=== PATIENT | female | born 1975 | race Caucasian/White ===

== ENCOUNTER 2020-04-16 07:56 | Outpatient (CLI) | payer OTHER, SELFPAY ==
--- NOTE | 2020-04-16 | USCV_ITS ---
Nanette Gibson Age: 44 Gender: F : 1975 Exam Date: 04/16/2020 08:30 Ordering Phys: Alanis Kilpatrick Technologist: Yady Faith [place]am Location[place] [facility] [place] Indication: chest pain, sob, numbness BP: / HR: 67 Rhythm: Sinus Technical Quality: Adequate MEASUREMENTS (Male / Female) Normal Values 2D ECHO LV Diastolic Diameter PLAX 3.3 cm 4.2 - 5.9 / 3.9 - 5.3 cm LV Systolic Diameter PLAX 1.7 cm IVS Diastolic Thickness 0.8 cm 0.6 - 1.0 / 0.6 - 0.9 cm IVS Systolic Thickness 1.5 cm LVPW Diastolic Thickness 0.9 cm 0.6 - 1.0 / 0.6 - 0.9 cm LVPW Systolic Thickness 1.4 cm LVOT Diameter 2.0 cm LV Ejection Fraction 2D Teich 80.2 % LV Ejection Fraction MOD 2C 56.3 % LV Ejection Fraction 2C AL 57.0 % LA Diameter 3.0 cm LA Width 2.6 cm LA Height 4.4 cm RA Width 2.8 cm RA Height 4.0 cm M-MODE LV Diastolic Diameter MM 3.2 cm 4.2 - 5.9 / 3.9 - 5.3 cm LV Systolic Diameter MM 1.9 cm LV Ejection Fraction MM Teich 72.1 % IVS Diastolic Thickness MM 0.7 cm 0.6 - 1.0 / 0.6 - 0.9 cm IVS Systolic Thickness MM 0.7 cm LVPW Diastolic Thickness MM 0.9 cm 0.6 - 1.0 / 0.6 - 0.9 cm LVPW Systolic Thickness MM 1.4 cm Aortic Annulus Diameter 2.5 cm LA Ao Ratio MM 1.2 MV E Point Septal Separation 0.7 cm DOPPLER AV Peak Velocity 110.0 cm/s LVOT Peak Velocity 91.0 cm/s AV Area Cont Eq vti 2.7 cm squared AV Area Cont Eq pk 2.7 cm squared MV Peak Velocity 98.0 cm/s MV Area PHT 4.6 cm squared Mitral E to A Ratio 1.2 MV E' Velocity 17.0 cm/s Mitral E to MV E' Ratio 6.8 Mitral E to LV E' Lateral Ratio 5.4 Mitral E to LV E' Septal Ratio 9.2 TR Peak Velocity 163.0 cm/s TR Peak Gradient 10.7 mmHg Right Atrial Pressure 3.0 mmHg Pulmonary Artery Systolic Pressu 13.6 mmHg PV Peak Velocity 103.0 cm/s RV Acceleration Time 0.1 s FINDINGS Left Ventricle Normal left ventricular size, systolic function and wall thickness, with no regional wall motion abnormalities. Left ventricular ejection fraction is estimated at 72 %. Normal diastolic function. Right Ventricle Normal right ventricular size and systolic function, RVSP 13.6 mmHg. Right Atrium Normal right atrial size. Right atrial pressure estimated at 3 mmHg. Left Atrium Normal left atrial size. Mitral Valve Structurally normal mitral valve. No mitral valve stenosis. Trace mitral valve regurgitation. Aortic Valve Structurally normal trileaflet aortic valve. No aortic valve stenosis. No aortic valve regurgitation. Tricuspid Valve Structurally normal tricuspid valve. Trace tricuspid valve regurgitation. Pulmonic Valve Structurally normal pulmonic valve. No pulmonary valve stenosis. Trace pulmonary valve regurgitation. Pericardium No pericardial effusion. Aorta Normal size aortic root and proximal ascending aorta. CONCLUSIONS 1. Normal left ventricular size, systolic function and wall thickness, with no regional wall motion abnormalities. Left ventricular ejection fraction is estimated at 72 %. Normal diastolic function. 2. Normal right ventricular size and systolic function, RVSP 13.6 mmHg. 3. No significant valvular abnormality. 4. No prior similar studies to compare. Anisha Miguel MD (Electronically Signed) Final Date: 17 Apr 2020 11:54 S
== END 2020-04-16 07:57 | disposition home or self-care (01) ==
PROVIDERS: PCP Nurse Practitioner Family; Visit Provider Nurse Practitioner Family
DX: R07.9 Chest pain, unspecified (principal); R06.02 Shortness of breath; R20.0 Anesthesia of skin
CPT/HCPCS: 93306

== ENCOUNTER 2020-04-16 09:05 | Outpatient (CLI) | payer OTHER, SELFPAY ==
--- NOTE | 2020-04-16 09:47 | ECG_ITS ---
NAME OF STUDY: EXERCISE SESTAMIBI STRESS TEST INDICATION: Chest Pain EXERCISE DATA: The patient was exercised by Maldonado protocol. Baseline heart rate was 62 beats per minute. Baseline blood pressure was 100/68 millimeters of mercury. Target heart rate was 177 beats per minute. Maximum heart rate achieved was 156, which was 88 % of the target heart rate. Maximum blood pressure was 157/72 millimeters of mercury. Total exercise time was 7 minutes 1 second. Maximum METs achieved was 8.8, maximum VO2 was 30.8. The reason for ending the test was maximum effort achieved. The patient complained of shortness of breath during the stress test, which then resolved at the end of the test. ELECTROCARDIOGRAM: BASELINE: Sinus rhythm, normal axis, no significant ST-T changes at the baseline noted. EXERCISE: At the peak exercise level, no significant ST-T changes suggestive of ischemia noted. RECOVERY: During the recovery period, heart rate dropped appropriately. No significant ST-T changes in the recovery suggestive of ischemia noted. CONCLUSION: 1. Exercise capacity fair. 2. Heart rate response was appropriate. 3. Blood pressure response was appropriate. 4. Symptoms not suggestive of ischemia. 5. Electrocardiogram portion of the stress test was not suggestive of ischemia. 6. Nuclear scan will be documented separately. Electronically Signed On 04-17-2020 19:10:33 CDT by Anshu Lundy M.D. [email or web address]
--- NOTE | 2020-04-16 09:47 | NMCV_ITS ---
NM karina perf SPECT r/s* [id number] Nanette Gibson Age: 44 Gender: F : 1975 Exam Date: 04/16/2020 10:08 Ordering Phys: Alanis Kilpatrick Technologist: OTILIA Interiano Exam Location: [facility] Indications: CHEST PAIN STRESS TEST Please see separate stress test report in [facility] for full findings IMAGE PROTOCOL Rest/Stress 1 Exercise Day Radiopharmaceutical Dose (mCi) Administration Site Administered by Rest: Tc-99m 10.7 IV OTILIA Delong Sestamibi Stress:Tc-99m 32.5 IV OTILIA Delong Sestamibi Rest: 16-Apr-2020 60 Discovery 630 Stress: 16-Apr-2020 15 Discovery 630 Radiopharmaceutical was injected at 85 % maximum heart rate. Images obtained in supine and prone position. SPECT RESULTS Technical Quality: Excellent Raw Data Analysis: Breast attenuation Image Corrections: No attenuation or motion correction applied Summed Stress Score: 0 Summed Rest Score: 2 Summed Difference Score: 0 PERFUSION FINDINGS SPECT images demonstrate homogeneous tracer distribution throughout the myocardium. FUNCTIONAL RESULTS (calculated via Gated SPECT) Stress Image LV EF (%): 80 Stress EDV (mL):61 TID: 1.13 Stress ESV (mL):12 Rest Image LV EF (%): 80 FUNCTIONAL FINDINGS: There is normal left ventricular systolic function. IMPRESSIONS Myocardial perfusion imaging is normal and low probability for obstructive coronary disease. TID ratio is elevated which could be secondary left- ventricular hypertrophy/subendocardial ischemia in the absence of other parameters. EKG segment will be documented separately. Anshu Lundy MD (Electronically Signed) Final Date: 16 Apr 2020 17:48 S
[2020-04-16 09:51] VITALS: BMI 30.9
[2020-04-16 10:58] VITALS: BP 142/83; PULSE 90
== END 2020-04-16 09:06 | disposition home or self-care (01) ==
LOC: RAD 09:06
PROVIDERS: PCP Nurse Practitioner Family; Visit Provider Nurse Practitioner Family
DX: R07.9 Chest pain, unspecified (principal); R06.02 Shortness of breath
CPT/HCPCS: 78452; 93017; A9500

== ENCOUNTER 2020-06-01 15:05 | Outpatient (CLI) | payer OTHER, SELFPAY ==
--- NOTE | 2020-06-01 15:10 | USCV_ITS ---
Nanette Gibson Age: 44 Gender: F : 1975 Exam Date: 06/01/2020 15:56 Ordering Phys: Jos Barahona MD Technologist: [place] [facility] [place] Indication: LEG EDEMA PROCEDURES: Venous duplex imaging was performed in bilateral lower extremities. The following venous structures were evaluated: common femoral vein, profunda vein, proximal portion of the greater saphenous vein, superficial femoral vein, and the popliteal vein. In addition, the posterior tibial and peroneal trunk were evaluated. Serial compression, augmentation maneuvers, and spectral Doppler flow evaluation were performed. FINDINGS: Normal 2-D Doppler and augmentation and compressibility throughout the lower extremity venous structures. Additional imaging through the proximal calf veins also reveals no thrombus. Limited evaluation of the greater saphenous vein is patent with no thrombus.. CONCLUSIONS No evidence of right lower extremity DVT. No evidence of left lower extremity DVT. George Milligan MD (Electronically Signed) Final Date: 03 June 2020 10:47 S
== END 2020-06-01 15:06 | disposition home or self-care (01) ==
LOC: RAD 15:06
PROVIDERS: PCP Nurse Practitioner Family; Visit Provider Family Medicine
DX: R60.0 Localized edema (principal)
CPT/HCPCS: 93970

== ENCOUNTER 2020-06-03 15:04 | Outpatient (CLI) | payer OTHER, SELFPAY ==
--- NOTE | 2020-06-03 15:10 | USCV_ITS ---
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 Dr Jerardo Tay MD [facility] (Electronically Signed) Final Date: 04 June 2020 19:17 S
== END 2020-06-03 15:05 | disposition home or self-care (01) ==
PROVIDERS: PCP Nurse Practitioner Family; Visit Provider Family Medicine
DX: R60.0 Localized edema (principal)
CPT/HCPCS: 93923

== ENCOUNTER 2020-11-05 12:38 | Outpatient (CLI) | payer OTHER, SELFPAY ==
--- NOTE | 2020-11-05 12:46 | XR_ITS ---
WS: [id number] Cervical spine, 3 views, 11/05/2020 Clinical Data: BACK PAIN, NECK PAIN Comparison: None. Findings: No compression fractures are seen. There is disc space narrowing at C5-C6. There is anterio r and posterior osteoarthritic spurring at C4-C5 and C5-C6. There is no prevertebral soft tissue swel ling. The odontoid is unremarkable. The soft tissues of the neck and the lung apices are normal. Ther e is an unfused portion of the C7 spinous process which may be a result of old trauma or congenital a bnormality. XR/XR cervical spine 3V* [id number] Impression: 1. Degenerative change of the vertebral bodies C4-C6. 2. Disc space narrowing at C4-C5 and C5-C6.
--- NOTE | 2020-11-05 12:46 | XR_ITS ---
WS: [id number] Thoracic spine, 3 views, 11/05/2020 Clinical Data: BACK PAIN, NECK PAIN Comparison: None. Findings: No compression fractures are seen. The disc heights are normal. Mild osteoarthritic spurring is seen at the mid thoracic vertebral bodies. The paravertebral regions are normal. 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
== END 2020-11-05 12:39 | disposition home or self-care (01) ==
LOC: RADWPI 12:40
PROVIDERS: PCP Nurse Practitioner Family; Visit Provider Nurse Practitioner Family
DX: M47.814 Spondylosis without myelopathy or radiculopathy, thoracic region; M54.2 Cervicalgia
CPT/HCPCS: 72040; 72072

== ENCOUNTER 2022-12-12 14:51 | Outpatient (CLI) | payer OTHER, SELFPAY ==
--- NOTE | 2022-12-12 15:06 | MM_ITS ---
WS: [id number] VIEWS: MLO and CC views both breasts. 3D digital tomosynthesis is also included in this exam. Breast implant displacement MLO and CC views also included in the series. No priors. Findings: A 9.6 x 6 mm ovoid nodule seen in the posterior depth of the medial left breast on the cc view only. No architectural distortion or suspicious calcification. Regional ultrasound of the left breast would be indicated for further workup. The breasts are heterogeneously dense and nodular in appearance. In tact bilateral breast implants noted. MM/[place] [id number] Impression: BI-RADS: 0-Incomplete: Need additional imaging evaluation FOLLOW-UP: See Report This mammogram was also analyzed by the Computer Aided Detection System R2 Imag e Handstitching Machine Collar Feller.
== END 2022-12-12 14:52 | disposition home or self-care (01) ==
LOC: RAD 14:51
PROVIDERS: PCP Clinical Nurse Specialist Adult Health; Visit Provider Clinical Nurse Specialist Adult Health
DX: Z12.31 Encounter for screening mammogram for malignant neoplasm of breast (principal)
CPT/HCPCS: 77063; 77067

== ENCOUNTER 2023-01-06 14:58 | Outpatient (CLI) | payer OTHER, SELFPAY ==
--- NOTE | 2023-01-06 15:15 | US_ITS ---
WS: [id number] Left breast ultrasound, 01/06/2023 Clinical Data: abnormal mammogram Comparison: Mammogram, 12/12/2022 Findings: In the medial aspect of the left breast at the 10:00 position there was a well bordered lymph node me asuring 0.27 x 0.92 x 0.95 cm. No spiculated masses or cysts were seen. US/US breast LT limited* [id number] Impression: 1. Left breast lymph node noted at the 10:00 position in the medial aspect the left breast corresponding to the density noted on the mammogram. 2. Recommend return to annual screening mammograms. BIRADS: 2-Benign FOLLOW UP: 1 Year Follow-up
== END 2023-01-06 14:59 | disposition home or self-care (01) ==
LOC: RAD 14:58
PROVIDERS: PCP Clinical Nurse Specialist Adult Health; Visit Provider Clinical Nurse Specialist Adult Health
DX: R92.8 Other abnormal and inconclusive findings on diagnostic imaging of breast (principal)
CPT/HCPCS: 76642

== ENCOUNTER 2023-04-30 11:19 | Inpatient (IN) | payer OTHER, SELFPAY ==
[2023-04-30] VITALS (17 sets, daily range): BP systolic 95–138; BP diastolic 61–92; PULSE 55–79; RESP 16–18; TEMP 36.3–36.7; O2SAT 94–100; BMI 30.9
[2023-04-30 11:54] LABS: Basophils % 0.5 %; Eosinophils # 0.1 10^3/uL (0.0-0.8); Eosinophils % 1.7 %; Hematocrit 44.5 % (37.0-47.0); Hemoglobin 14.9 g/dL (11.5-15.3); Lymphocytes # 1.7 10^3/uL (0.8-4.8); Lymphocytes % 28.1 %; Mean Corpuscular HGB Conc 33.5 g/dL (30.0-36.0); Mean Corpuscular Hemoglobin 31.4 pg (28.0-34.0); Mean Corpuscular Volume 93.7 fl (81-99); Mean Platelet Volume 9.1 fL (7.4-10.4); Monocytes # 0.4 10^3/uL (0.2-0.9); Monocytes % 6.3 %; Neutrophils # 3.79 10^3/uL (1.8-7.7); Neutrophils % 63.1 %; Nucleated Red Blood Cells % 0 %; Platelet Count 214 10^3/cmm (130-400); Red Blood Count 4.75 10^6/uL (4.1-5.3); Red Cell Distribution Width 11.9 % (12.1-15.1)
--- NOTE | 2023-04-30 11:54 | USR_ITS ---
PROCEDURE INFORMATION: Exam: US Abdomen, Limited; Right Upper Quadrant Exam date and time: 04/30/2023 12:14 PM Age: 47 years old Clinical indication: Abdominal pain; Acute; Additional info: Ruq pain, n/v, R/O gb TECHNIQUE: Imaging protocol: Real time ultrasound of the abdomen with image documentation. Limited exam focused on the right upper quadrant. COMPARISON: No relevant prior studies available. FINDINGS: Liver: Unremarkable. Gallbladder: Cholelithiasis and mild gallbladder wall thickening. No pericholecystic fluid. Biliary ducts: Common bile duct dilatation to approximately 8 mm. No stones. Pancreas: Unremarkable as visualized. Right kidney: No mass. No definite stones. No hydronephrosis. US/US abdomen limited [id number] IMPRESSION: 1. Cholelithiasis and mild gallbladder wall thickening. Acute cholecystitis cannot be excluded. If clinically indicated, HIDA scan would provide a more sensitive evaluation for acute gallbladder pathology. 2. Common bile duct dilatation to approximately 8 mm. Correlate with LFTs and, if clinically indicated, ERCP or MRCP.
[2023-04-30] MEDS: ondansetron 2 mg/ML SDV 2 mL 4 MG IVP (12:03)
[2023-04-30] MEDS: ketorolac 30 mg/mL INJ IVP ×2 (12:03→18:49)
--- NOTE | 2023-04-30 12:09 | ED_ITS ---
HPI - Abdominal Pain General: Chief Complaint: Abdominal Pain Stated Complaint: stomach and back pain Time Seen by Provider: 04/30/23 11:26 History of Present Illness: Patient presents to the ER with epigastric right upper pain that radiates to her back. Patient has had this pain off and on for quite some time. Patient has seen her PCP and has a right upper quadrant ultrasound scheduled until 620. Patient thinks it is her gallbladder. Patient denies any other symptoms at this time. Patient denies any history of hepatitis, long-term or and/or chronic alcohol use and/or Tylenol use. MD elicited complaint: abdominal pain Pertinent past history: none Pain Consistency: intermittent Location: Epigastric and RUQ Severity: moderate Quality: cramping and aching Radiation: back Migration to: no migration Exacerbating factors: nothing Relieving factors: nothing Associated Symptoms: Reports no associated symptoms Review of Systems General: Reports: 10 or more systems reviewed and unremarkable except in HPI and below PFSH ED PFSH: Medical History Anxiety Carpal tunnel syndrome of right wrist Morbid obesity Tobacco dependence Surgical History Hx of breast implants, bilateral Hx of hysterectomy Family History Other CAD (coronary artery disease) Cancer Social History Smoking and tobacco status: current every day smoker cigarettes Packs smoked per day: 1 Years cigarettes smoked: 30 Alcohol intake: current Alcohol intake frequency: few times a month Substance/Drug Use: former Lives independently: Yes Household members: spouse Marital status: Physical Exam Const: COMMON NORMALS: no acute distress, average body habitus, patient oriented x3, no limitations, healthy appearing, alert and well nourished HENMT: COMMON NORMALS: normocephalic, atraumatic, hearing grossly normal bilaterally, external ears normal, Normal external nose present and moist oral mucous membranes HEAD & SCALP: normocephalic and atraumatic NOSE: Normal external nose present EXTERNAL EAR: Yes external ears normal Neck/C-Spine: COMMON NORMALS: full ROM, no lymphadenopathy, supple, no meningeal signs, no JVD and Thyroid normal THYROID: Thyroid normal Chest: COMMONS NORMALS: normal inspection of the chest and normal palpation of entire chest wall Resp: COMMON NORMALS: normal respiratory effort, No retractions, No use of accessory muscles and clear to auscultation bilaterally AUSCULTATION: clear to auscultation bilaterally Cardio: COMMON NORMALS: no JVD, regular rate, regular rhythm, S1 normal heart sound present, S2 normal heart sound present, No gallops present (Cardio), No clicks present (Cardio), No murmurs present (Cardio) and No rub (Cardio) RATE: regular rate RHYTHM: regular rhythm HEART SOUNDS: S1 normal heart s ound present and S2 normal heart sound present GI: COMMON NORMALS: Normal to inspection, nondistended, normoactive bowel sounds present, Soft to palpation, No hepatosplenomegaly present and no masses PALPATION: Yes Soft to palpation, Yes Tenderness to palpation present (GI) (Epigastric and right upper quadrant) and Yes No hepatosplenomegaly present : COMMON NORMALS: Yes no CVA tenderness BLADDER/KIDNEY EXAM: Yes no CVA tenderness Back/Pelvis: COMMON NORMALS: no CVA tenderness Neuro: COMMON NORMALS: patient oriented x3 SENSORIUM/ORIENTATION: Yes alert MENINGEAL SIGNS: Yes no meningeal signs Course Vital Signs: Vital signs: Vital Signs Temperature 97.4 F L 04/30/23 20:43 Pulse Rate 55 L 04/30/23 20:43 Respiratory Rate 16 04/30/23 21:02 Blood Pressure 125/80 04/30/23 20:43 Pulse Oximetry 96 04/30/23 20:43 Oxygen Delivery Me thod Room Air 04/30/23 20:07 MDM - Abdominal Pain Medical Decision Making Talk with Dr. Joaquin will get MRCP, reviewed the MRCP with Dr. Joaquin he said more likely not gallbladder but can admit to the hospitalist for further work-up and he will consult from a surgical standpoint. Talk with Dr. Contreras he said these numbers are really high especially since the patient does not drink, use Tylenol or has ever had hepatitis. He recommends that we transfer the patient out for further work-up and treatment at a place at least has a adaptive physical education specialist and he recommended [facility]. We will get further testing here and once we get it back we will call [facility] for possible consultation and transfer. Called [facility] transfer line talk to with the hospice volunteer coordinator and GI doctor Dr. COLE who did agree to accept the patient in transfer however they have no beds at this moment and he said it may be several days for they have beds. He said he would just follow serial enzymes and if they worsen he she may need a liver biopsy or they may get better and resolve on her own. Talk with Dr. David again who agreed to take the patient in this hospital while waiting transfer. Patient will be admitted to [facility]. Differential Diagnosis Likely abdominal pain; Unlikely acute appendicitis, calculus of kidney, constipation, diverticulitis, endometriosis, gastroenteritis, pancreatitis or small bowel obstruction Medical Records I reviewed the patient's medical records. Lab Data I reviewed the patient's lab results. 04/30/23 11:34 04/30/23 11:34 Labs/Radiology: Radiology Impressions Abdomen Ultrasound 04/30/23 11:54 IMPRESSION: 1. Cholelithiasis and mild gallbladder wall thickening. Acute cholecystitis cannot be excluded. If clinically indicated, HIDA scan would provide a more sensitive evaluation for acute gallbladder pathology. 2. Common bile duct dilatation to approximately 8 mm. Correlate with LFTs and, if clinically indicated, ERCP or MRCP. Cholangiopancreatography MRI 04/30/23 13:18 IMPRESSION: Cholelithiasis. No common bile duct dilation/choledocholithiasis. Laboratory Results WBC 6.0 10^3/uL (4.0-10.0) 04/30/23 11:34 RBC 4.75 10^6/uL (4.1-5.3) 04/30/23 11:34 Hgb 14.9 g/dL (11.5-15.3) 04/30/23 11:34 Hct 44.5 % (37.0-47.0) 04/30/23 11:34 MCV 93.7 fl (81-99) 04/30/23 11:34 MCH 31.4 pg (28.0-34.0) 04/30/23 11:34 MCHC 33.5 g/dL (30.0-36.0) 04/30/23 11:34 RDW 11.9 % (12.1-15.1) L 04/30/23 11:34 Plt Count 214 10^3/cmm (130-400) 04/30/23 11:34 MPV 9.1 fL (7.4-10.4) 04/30/23 11:34 Neut % (Auto) 63.1 % 04/30/23 11:34 Lymph % (Auto) 28.1 % 04/30/23 11:34 [place] % (Auto) 6.3 % 04/30/23 11:34 Eos % (Auto) 1.7 % 04/30/23 11:34 Baso % (Auto) 0.5 % 04/30/23 11:34 Neut # (Auto) 3.79 10^3/uL (1.8-7.7) 04/30/23 11:34 Lymph # (Auto) 1.7 10^3/uL (0.8-4.8) 04/30/23 11:34 [place] # (Auto) 0.4 10^3/uL (0.2-0.9) 04/30/23 11:34 Eos # (Auto) 0.1 10^3/uL (0.0-0.8) 04/30/23 11:34 Baso # (Auto) 0.0 10^3/uL (0.0-0.1) 04/30/23 11:34 Nucleated RBC % (auto) 0 % 04/30/23 11:34 Nucleated RBCs # 0.0 /100WBC 04/30/23 11:34 PT 13.00 SECONDS (12.1-14.9) 04/30/23 11:34 INR 0.96 (0.8-1.2) 04/30/23 11:34 Sodium 139 mmol/L (136-145) 04/30/23 11:34 Potassium 4.3 mmol/L (3.5-5.1) 04/30/23 11:34 Chloride 105 mmol/L (98-107) 04/30/23 11:34 Carbon Dioxide 26 mmol/L (22-29) 04/30/23 11:34 Anion Gap 12.3 (5-19) 04/30/23 11:34 BUN 11 mg/dL (6-20) 04/30/23 11:34 Creatinine 0.7 mg/dL (0.5-0.9) 04/30/23 11:34 GFR Calculation 90.1 mL/min (90-130) 04/30/23 11:34 Glucose 93 mg/dL (65-115) 04/30/23 11:34 Calculated Osmolality 287 mOsm/kg (285-295) 04/30/23 11:34 Calcium 9.2 mg/dL (8.5-10.5) 04/30/23 11:34 Total Bilirubin 1.0 mg/dL (0.15-1.2) 04/30/23 11:34 GGT 450 U/L (5-36) H 04/30/23 16:22 AST 1131 U/L (0-32) H 04/30/23 11:34 ALT 944 U/L (0-33) H 04/30/23 11:34 Alkaline Phosphatase 205 U/L (35-105) H 04/30/23 11:34 Ammonia 17 umol/L (11-51) 04/30/23 16:22 Total Protein 7.3 g/dL (6.6-8.7) 04/30/23 11:34 Albumin 4.5 g/dL (3.5-5.2) 04/30/23 11:34 Globulin 2.8 g/dL (1.3-4.6) 04/30/23 11:34 Lipase 69 U/L (13-60) H 04/30/23 11:34 Urine Color Dark yellow (Yellow) 04/30/23 16:14 Urine Appearance Clear (CLEAR) 04/30/23 16:14 Urine pH 8 (5-7) H 04/30/23 16:14 Ur Specific [place] 1.015 (1.005-1.030) 04/30/23 16:14 Urine Protein Neg (Negative) 04/30/23 16:14 Urine Glucose (UA) Norm (Normal) 04/30/23 16:14 Urine Ketones Negative (Negative) 04/30/23 16:14 Urine Blood Neg (Negative) 04/30/23 16:14 Urine Nitrate Negative (Negative) 04/30/23 16:14 Urine Bilirubin Neg (Negative) 04/30/23 16:14 Urine Urobilinogen 4 mg/dL (Negative) H 04/30/23 16:14 Ur Leukocyte Esterase Negative (Negative) 04/30/23 16:14 Salicylates < 0.3 mg/dL (3-10) L 04/30/23 16:22 Urine Opiates Screen Negative ng/mL (Negative) 04/30/23 16:14 Acetaminophen < 5.0 ug/mL (10-30) L 04/30/23 16:22 Ur Barbiturates Screen Negative ng/mL (Negative) 04/30/23 16:14 Ur Phencyclidine Scrn Negative ng/mL (Negative) 04/30/23 16:14 Ur Amphetamines Screen Negative ng/mL (Negative) 04/30/23 16:14 U Benzodiazepines Scrn Negative ng/mL (Negative) 04/30/23 16:14 Urine Cocaine Screen Negative ng/mL (Negative) 04/30/23 16:14 U Marijuana (THC) Screen Negative ng/mL (Negative) 04/30/23 16:14 Ethyl Alcohol < 10 mg/dL (0-10) 04/30/23 16:22 Hepatitis A IgM Ab Non-reactive (Nonreactive) 04/30/23 11:34 Hep Bs Antigen Non-reactive (Nonreactive) 04/30/23 11:34 Hep Bs Antibody < 3.5 (11.5-1000) L 04/30/23 11:34 Hep B Core Total Ab Non-reactive (Nonreactive) 04/30/23 11:34 Hepatitis C Antibody Non-reactive (Nonreactive) 04/30/23 11:34 Discharge Plan Discharge Patient Disposition: Admitted As Inpatient Admit Provider: Brendan David Clinical Impression: Right upper quadrant pain, Elevated liver enzymes Condition: Stable 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
[2023-04-30 12:12] LABS: Albumin Level 4.5 g/dL (3.5-5.2); Alkaline Phosphatase 205 U/L (35-105); Anion Gap 12.3 (5-19); Blood Urea Nitrogen 11 mg/dL (6-20); Calcium 9.2 mg/dL (8.5-10.5); Carbon Dioxide 26 mmol/L (22-29); Chloride 105 mmol/L (98-107); Creatinine Clr Calc Pharmacy 103.8047; Globulin 2.8 g/dL (1.3-4.6); Glomerular Filtration Rate 90.1 mL/min (90-130); Glucose 93 mg/dL (65-115); Lipase 69 U/L (13-60); Osmolality Calculated 287 mOsm/kg (285-295); Potassium 4.3 mmol/L (3.5-5.1); Sodium 139 mmol/L (136-145); Total Protein 7.3 g/dL (6.6-8.7)
[2023-04-30 12:24] LABS: Alanine Aminotransferase 944 U/L (0-33)
[2023-04-30 12:26] LABS: Aspartate Amino Transferase 1131 U/L (0-32)
--- NOTE | 2023-04-30 13:18 | MRR_ITS ---
PROCEDURE INFORMATION: Exam: MR Abdomen Without Contrast Exam date and time: 04/30/2023 2:23 PM Age: 47 years old Clinical indication: Other: Gb pain off and on x 1 month; Abdominal pain; Tenderness; Upper; Additional info: Abnormal gb US, dilated cbd, elevated lfts TECHNIQUE: Imaging protocol: Magnetic resonance imaging of the abdomen without contrast. COMPARISON: US abdomen limited [id number] 04/30/2023 12:14 PM FINDINGS: Liver: No mass. Gallbladder and bile ducts: Cholelithiasis. There is a 1.7 cm stone within the gallbladder neck. No apparent gallbladder wall thickening. No irregular enhancement of the gallbladder wall. No common bile duct dilation or filling defect within the common bile duct. Pancreas: Unremarkable. No ductal dilation. Spleen: Unremarkable. No splenomegaly. Adrenal glands: Unremarkable. No mass. Kidneys and ureters: Unremarkable. No solid mass. No hydronephrosis. Stomach and bowel: Visualized stomach and intestines are unremarkable. Intraperitoneal space: No free fluid. Vasculature: No abdominal aortic aneurysm. Bones/joints: Unremarkable. Soft tissues: Unremarkable. MR/MR MRCP [id number] IMPRESSION: Cholelithiasis. No common bile duct dilation/choledocholithiasis.
--- NOTE | 2023-04-30 14:22 | PC.NURSE ---
Pt to MRI at 1423.
--- NOTE | 2023-04-30 14:48 | PC.NURSE ---
Pt returned from MRI at 1448.
[2023-04-30 16:11] LABS: INR 0.96 (0.8-1.2)
[2023-04-30 16:20] LABS: Add Urine Microscopic? NO; Charge for UA Resulting for Rev
[2023-04-30 16:30] LABS: Bilirubin Urine Neg (Negative); Blood Urine Neg (Negative); Glucose Urine UA Norm (Normal); Ketones Urine Negative (Negative); Leukocyte Esterase Urine Negative (Negative); Nitrate Urine Negative (Negative); Protein Urine Neg (Negative); Specific Gravity, Urine 1.015 (1.005-1.030); Urine Appearance Clear (CLEAR); Urine Color Dark Yellow (Yellow); Urobilinogen Urine 4 mg/dL (Negative); pH Urine 8 (5-7)
[2023-04-30 16:36] LABS: Hepatitis A Antibody IgM Non-Reactive (Nonreactive); Hepatitis B Core AB, Total Non-Reactive (Nonreactive); Hepatitis B Surface Antigen Non-Reactive (Nonreactive); Hepatitis C Virus Antibody Non-Reactive (Nonreactive)
[2023-04-30 16:39] LABS: Amphetamines Screen Urine Negative (Negative); Barbiturates Screen Urine Negative (Negative); Benzodiazepines Screen Urine Negative (Negative); Cocaine Screen Urine Negative (Negative); Opiate Screen Urine Negative (Negative); PCP Screen Urine Negative (Negative); THC Screen Urine Negative (Negative)
[2023-04-30 16:40] LABS: Hepatitis B Surface AB < 3.5 (11.5-1000)
[2023-04-30 16:42] LABS: Ammonia 17 umol/L (11-51)
[2023-04-30 16:47] LABS: Acetaminophen < 5.0 ug/mL (10-30); Alcohol Level < 10 mg/dL (0-10); Salicylate < 0.3 mg/dL (3-10)
[2023-04-30 17:15] LABS: Gamma Glutamyl Transferase 450 U/L (5-36)
--- NOTE | 2023-04-30 19:58 | PM.HP ---
Providers/Chief Complaint Admitting Physician: Brendan David Primary Care Provider: Danny Cantu Chief Complaint: stomach and back pain History of Present Illness 47-year-old lady with carpal tunnel syndrome, smoking, anxiety, remote history of substance use, not in years, presented due to upper abdominal pain, across right upper quadrant and epigastrium. In ER noted severe transaminitis, AST 1131, ALT 944. Alk phos 205. T. bili normal. Lipase 69. She is afebrile, without leukocytosis. No sinus tachycardia or other signs of sepsis. UA unremarkable. Right upper quadrant ultrasound with cholelithiasis, mild gallbladder wall thickening. Acute cholecystitis not excluded. CBD dilation 8 mm. Follow-up with MRCP obtained, cholelithiasis. No CBD dilation/choledocholithiasis. Initial findings were discussed with surgery without less likely gallbladder was the cause, but recommending admission, would be available for consultation. Additional studies obtained in ER including viral hepatitis panel which was unremarkable. EtOH and salicylates negative. Acetaminophen negative. U tox unremarkable. GGT 450. Ammonia normal. INR 1.96. With so far unexplained severe rise in transaminases, additionally transfer sought to [facility] for further assessment with subspecialist, where she was accepted, but no bed currently available. She is agreeable to admit here pending further assessment/reassessment and possibly transfer once there is a bed opening. She otherwise denies any Tylenol use. Has been going through a stressful time with her being out of work, but denies any thoughts of self-harm or suicidal ideation. Has history of substance use disorder, but denies any recent use in years. States occasionally drinks alcohol, but states has not had anything for the last several weeks. She is not sure if there is a history of clotting disorder in the family. She thinks her father may have had some blood clots. Not on hormone control. Denies personal history of DVT. Denies any tick bites. Review of Systems Const: Denies: fever(s), chills, body aches or malaise Card: Denies: chest pain, edema, pre-syncope or dyspnea on exertion Resp: Denies: dyspnea, productive cough, change in phlegm color or hemoptysis GI: Denies: abdominal pain, nausea, vomiting, diarrhea, constipation, hematochezia or melena : Denies: flank pain, urinary frequency or hematuria Musc: Denies: back pain, joint swelling or joint redness Skin/Breast: Denies: rash or new lesions Neuro: Denies: headache(s), numbness in extremities, weakness in extremities, dizziness, confusion or seizure-like activity Endo: Denies: polyuria or polydipsia Medications/Allergies Home Medications Medication Instructions Recorded Confirmed Last Taken Type nicotine 14 mg/24 hr daily 1 patch transdermal DAILY #14 ea 11/30/22 04/30/23 Unknown Rx transdermal patch nicotine 21 mg/24 hr daily 1 patch transdermal DAILY #14 ea 11/30/22 04/30/23 Unknown Rx transdermal patch nicotine 7 mg/24 hr daily 1 patch transdermal Q24H #14 ea 11/30/22 04/30/23 Unknown Rx transdermal patch loperamide 2 mg capsule 2 mg PO Q6H PRN loose stool #30 04/13/23 04/30/23 Unknown Rx caps omeprazole 40 mg capsule,delayed 40 mg PO QAM 04/30/23 04/30/23 04/30/23 03:00 History release venlafaxine 150 mg 150 mg PO QAM 04/30/23 04/30/23 04/30/23 08:00 History capsule,extended release 24 hr Allergies Allergy/AdvReac Type Severity Reaction Status Date / Time morphine Allergy ADR-Itching Verified 04/30/23 18:35 PFSH Acute PFSH: Medical History Anxiety Carpal tunnel syndrome of right wrist Morbid obesity Tobacco dependence Surgical History Hx of breast implants, bilateral Hx of hysterectomy Family History Other CAD (coronary artery disease) Cancer Social History Smoking and tobacco status: current every day smoker cigarettes Packs smoked per day: 1 Years cigarettes smoked: 30 Alcohol intake: current Alcohol intake frequency: few times a month Substance/Drug Use: former Lives independently: Yes Household members: spouse Marital status: Vitals/I&O/Wt Last Vital Signs Temp 98.1 F 04/30/23 11:24 Pulse 62 04/30/23 19:38 Resp 18 04/30/23 17:45 BP 131/91 04/30/23 19:38 Pulse Ox 98 04/30/23 19:38 O2 Del Method Room Air 04/30/23 19:38 Weight last 48 hrs Weight 81.647 kg Physical Exam Const: COMMON NORMALS: patient oriented x3 and alert GENERAL APPEARANCE: cooperative ORIENTATION/CONSCIOUSNESS: Yes awake HENMT: COMMON NORMALS: oropharynx normal Neck/C-Spine: COMMON NORMALS: no JVD Resp: COMMON NORMALS: normal respiratory effort and clear to auscultation bilaterally AUSCULTATION: clear to auscultation bilaterally Cardio: COMMON NORMALS: no JVD, regular rhythm, S1 normal heart sound present, S2 normal heart sound present and No murmurs present (Cardio) RHYTHM: regular rhythm HEART SOUNDS: S1 normal heart sound present and S2 normal heart sound present GI: COMMON NORMALS: Normal to inspection, nondistended, normoactive bowel sounds present and Soft to palpation PALPATION: Yes Soft to palpation OTHER: Tender upper abdomen/RUQ Extremity: COMMON NORMALS: no joint enlargement and no pedal edema Neuro: COMMON NORMALS: patient oriented x3 and moves all extremities SENSORIUM/ORIENTATION: Yes alert Skin: COMMON NORMALS: no rashes or lesions noted GENERAL SKIN EXAM: no rashes or lesions noted Data 04/30/23 11:34 04/30/23 11:34 A&P Assessment and plan (1) Elevated liver enzymes: Severe transaminitis, unclear cause with suspected acute hepatitis of unknown etiology. Viral hepatitis panel noted negative. Takes Tylenol only occasionally, negative, level. Negative salicylates. Otherwise unremarkable UDS. Past history of substance use but not in years. Reports sometimes EtOH, but states has not had any in several weeks. Maintaining blood pressure, no hypotension. Noted cholelithiasis, MRCP without ABD stone, no other signs of cholangitis. Some question of cholecystitis, mild thickening of gallbladder wall on ultrasound. Will assess with HIDA scan. Possibly secondary to medications, omeprazole, venlafaxine can cause liver necrosis, hepatitis respectively. Will not restart. Additionally assess duplex ultrasound for any hepatic vein thrombosis. Initial studies for possibility of autoimmune hepatitis GIBRAN, smooth muscle antibodies, AMA. She denies any history of prior autoimmune illness. Follow-up liver parameters with CMP, INR, CBC. Is excepted for additional assessment at [facility], in case not improving, or numbers worsening may need liver biopsy. Somewhat lower possibility also discussed with her, possibly passed stone. Lipase not suggestive of pancreatitis at this time. We will follow-up level. At risk of potentially life-threatening deterioration, acute liver failure. Monitor in the hospital. (2) Right upper quadrant pain: As above Plan Smoking addiction: Encourage cessation. Nicotine patch, lozenges as needed. Discussed with ER physician. ER documentation reviewed. Attestations Medical Necessity Statement*: Admission of over 2 midnights anticipated for assessment and Diagnoses Elevated liver enzymes R74.8 Right upper quadrant pain R10.11
--- NOTE | 2023-04-30 20:30 | PC.NURSE ---
ADMIT NOTE Pt received to floor from ED at 1955. Is alert and oriented. c/o RUQ pain that radiates all across upper abdomen and around to her back. Abd is soft with tenderness across upper abd. Says has been having this pain for about a month but just keeps getting worse. Rating a 6 on admit. Denies any nausea but does say she has been feeling bloated and has had some constipation. Small BM this morning. VS check done and admission assessment being done by RN
[2023-04-30] MEDS: nicotine 21 mg Patch 1 PATCH TRANSDERMA (21:04)
[2023-04-30] MEDS: pantoprazole DR 40 mg Tablet PO (21:07)
[2023-05-01] VITALS (9 sets, daily range): BP systolic 95–116; BP diastolic 60–73; PULSE 63–81; RESP 16–20; TEMP 36.6–36.9; O2SAT 92–96
[2023-05-01 04:16] LABS: Basophils % 0.5 %; Hemoglobin 14.4 g/dL (11.5-15.3); Nucleated Red Blood Cells % 0 %; White Blood Count 6.3 10^3/uL (4.0-10.0)
[2023-05-01 04:21] LABS: Eosinophils # 0.1 10^3/uL (0.0-0.8); Eosinophils % 1.9 %; Hematocrit 44.4 % (37.0-47.0); Mean Corpuscular HGB Conc 32.4 g/dL (30.0-36.0); Mean Corpuscular Hemoglobin 31.2 pg (28.0-34.0); Mean Corpuscular Volume 96.1 fl (81-99); Monocytes # 0.3 10^3/uL (0.2-0.9); Monocytes % 5.2 %; Neutrophils # 3.86 10^3/uL (1.8-7.7); Neutrophils % 61.1 %; Platelet Count 194 10^3/cmm (130-400); Red Blood Count 4.62 10^6/uL (4.1-5.3); Red Cell Distribution Width 12.3 % (12.1-15.1)
[2023-05-01 04:25] LABS: INR 0.98 (0.8-1.2)
[2023-05-01 04:30] LABS: Ammonia 25 umol/L (11-51)
[2023-05-01 04:36] LABS: Albumin Level 4.1 g/dL (3.5-5.2); Alkaline Phosphatase 236 U/L (35-105); Anion Gap 12.5 (5-19); Aspartate Amino Transferase 473 U/L (0-32); Blood Urea Nitrogen 14 mg/dL (6-20); Calcium 9.6 mg/dL (8.5-10.5); Carbon Dioxide 26 mmol/L (22-29); Chloride 107 mmol/L (98-107); Globulin 2.7 g/dL (1.3-4.6); Glomerular Filtration Rate 77.2 mL/min (90-130); Glucose 88 mg/dL (65-115); Lipase 43 U/L (13-60); Osmolality Calculated 292 mOsm/kg (285-295); Potassium 4.5 mmol/L (3.5-5.1); Sodium 141 mmol/L (136-145); Total Bilirubin 0.9 mg/dL (0.15-1.2); Total Protein 6.8 g/dL (6.6-8.7)
[2023-05-01 04:52] LABS: Alanine Aminotransferase 793 U/L (0-33)
--- NOTE | 2023-05-01 07:56 | PM.PN ---
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 in leg pain around subcostal margins radiating towards her back Vitals/I&O/Wt Last Vital Signs Temp 98.4 F 05/01/23 07:19 Pulse 63 05/01/23 07:19 Resp 16 05/01/23 07:19 BP 98/64 05/01/23 07:19 Pulse Ox 96 05/01/23 07:19 O2 Del Method Room Air 04/30/23 20:07 04/30/23 05/01/23 05/01/23 22:59 06:59 14:59 Intake Total 480 / 480 Balance 480 / 480 Weight last 48 hrs Weight 81.647 kg Physical Exam Narrative: Awake and alert Nontender abdomen Abdomen soft Nonicteric GCS 15 nonfocal neuro exam Awake and alert GCS 15 S1, S2 Doing well on room air Afebrile Data 05/01/23 03:56 05/01/23 03:56 A&P Assessment and plan (1) Elevated liver enzymes: (2) Diarrhea: (3) Right upper quadrant pain: (4) GERD (gastroesophageal reflux disease): (5) Anxiety: (6) Tobacco dependence: Plan Abnormal transaminases Most likely passage of stone Hepatitis panel negative We will follow-up with [facility] profile Patient drinks alcohol, last drink was 3 days ago with 6 beers at nighttime Active smoker Nonicteric No history of diabetes No signs of portal vein thrombosis Distended gallbladder No active fever I will start her diet as low-fat for now Continue opioids Trend CMP tomorrow We will follow-up with [facility] transfer line Full code DVT prophylaxis on board If her liver enzymes Trending down I might be able to discharge her tomorrow and have her follow-up outpatient with filler mixer Attestations Medical Necessity Statement*: Discharge tomorrow if stable Diagnoses Elevated liver enzymes R74.8 Diarrhea R19.7 Right upper quadrant pain R10.11 GERD (gastroesophageal reflux disease) K21.9 Anxiety F41.9 Tobacco dependence F17.200
[2023-05-01 08:44] LABS: Tumor Marker Alpha Fetoprotein 5.5 ng/mL (0-8.3)
[2023-05-01] MEDS: heparin 5,000 unit/mL INJ 1 mL 5000 UNIT SUBCUT ×2 (09:49→20:46)
[2023-05-01] MEDS: ondansetron 2 mg/ML SDV 2 mL 4 MG IVP (12:11)
[2023-05-01] MEDS: ketorolac 30 mg/mL INJ 15 MG IVP (12:11)
--- NOTE | 2023-05-01 20:01 | NM_ITS ---
WS: [id number] NUCLEAR MEDICINE HIDA SCAN CLINICAL INFORMATION: cholelithiasis, RUQ pain, mild wall thick on US TECHNIQUE: Following intravenous administration of 8.3 mCi of technetium 99m mebrofenin, images of th e abdomen were obtained over the course of 60 minutes. Next, gallbladder ejection fraction was determ ined by obtaining preprandial and one-hour postprandial images of the gallbladder following oral abel stion of Ensure. COMPARISON: Ultrasound May 09, 2023 and MRCP April 30, 2023 FINDINGS: Hepatic uptake at 5 minutes. Normal hepatic excretion. Normal common bile duct and small bowel activi ty visualized. Gallbladder is not visualized by 2 hours compatible with cystic duct obstruction and s uspicious for acute cholecystitis. In retrospect, tiny suspected nonobstructing or incompletely obstructing gallstones in the distal com mon bile duct on the prior MRCP only visualized on the coronal and MIP imaging. 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 NM/NM hepatobiliary w phar* [id number] IMPRESSION: 1. Gallbladder is not visualized by 2 hours compatible with cystic duct obstru ction and acute cholecystitis. 2. Suspected tiny incompletely obstructing or nonobstructing gallstones in the distal common bile duct on the prior MRCP only visualized on the coronal and M IP imaging. Recommend ERCP. 3. 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 Patient at risk for cholecystoduodenal fistula due to large gallstone size and proximity to the traversing duodenum if ongoing inflammation from cholecyst itis. Notified Dr. Hernández at 05/01/2023 2:00 PM.
--- NOTE | 2023-05-01 20:33 | USCV_ITS ---
Nanette Gibson Age: 47 Gender: F : 1975 Exam Date: 05/01/2023 06:26 Ordering Phys: Brendan David MD Technologist: Benjamin Leigh Exam Location: [facility] [place]_ Indication: TRANSAMINITIS Findings NORMAL IVC AND HEPATIC VEINS NORMAL PORTAL FLOW TOWARDS THE LIVER. INCIDENTAL GB VEIWS OF GB LOOK MUCH WORSE Conclusions Normal IVC. Hepatic veins are patent. Normal hepatopetal flow. Limited gallbladder views. Cholelithiasis with shadowing. Gallbladder is contracted with wall thickening. Correlation for cholecystitis George Milligan MD (Electronically Signed) Final Date: 01 May 2023 10:55 S
[2023-05-01] MEDS: nicotine 21 mg Patch 1 PATCH TRANSDERMA (21:37)
--- NOTE | 2023-05-01 21:39 | PC.NURSE ---
removed old nicotine patch from right shoulder.
[2023-05-02] VITALS (10 sets, daily range): BP systolic 105–113; BP diastolic 64–77; PULSE 69–95; RESP 16–18; TEMP 36.4–36.9; O2SAT 93–96
[2023-05-02 04:05] LABS: Basophils % 0.4 %; Eosinophils # 0.1 10^3/uL (0.0-0.8); Eosinophils % 1.5 %; Hematocrit 41.4 % (37.0-47.0); Hemoglobin 13.4 g/dL (11.5-15.3); Lymphocytes # 2.7 10^3/uL (0.8-4.8); Lymphocytes % 36.2 %; Mean Corpuscular HGB Conc 32.4 g/dL (30.0-36.0); Mean Corpuscular Hemoglobin 30.7 pg (28.0-34.0); Mean Platelet Volume 8.9 fL (7.4-10.4); Monocytes # 0.4 10^3/uL (0.2-0.9); Neutrophils # 4.28 10^3/uL (1.8-7.7); Neutrophils % 56.6 %; Nucleated Red Blood Cells % 0 %; Platelet Count 195 10^3/cmm (130-400); Red Blood Count 4.36 10^6/uL (4.1-5.3); Red Cell Distribution Width 12.1 % (12.1-15.1); White Blood Count 7.6 10^3/uL (4.0-10.0)
[2023-05-02 04:19] LABS: Ammonia 23 umol/L (11-51); INR 0.93 (0.8-1.2)
[2023-05-02 04:21] LABS: Alanine Aminotransferase 438 U/L (0-33); Albumin Level 3.9 g/dL (3.5-5.2); Alkaline Phosphatase 198 U/L (35-105); Anion Gap 13.8 (5-19); Aspartate Amino Transferase 130 U/L (0-32); Blood Urea Nitrogen 18 mg/dL (6-20); Calcium 9.2 mg/dL (8.5-10.5); Carbon Dioxide 26 mmol/L (22-29); Chloride 103 mmol/L (98-107); Globulin 2.6 g/dL (1.3-4.6); Glomerular Filtration Rate 67.4 mL/min (90-130); Glucose 96 mg/dL (65-115); Lipase 49 U/L (13-60); Osmolality Calculated 288 mOsm/kg (285-295); Potassium 4.8 mmol/L (3.5-5.1); Sodium 138 mmol/L (136-145); Total Bilirubin 0.4 mg/dL (0.15-1.2); Total Protein 6.5 g/dL (6.6-8.7)
[2023-05-02] MEDS: pantoprazole DR 40 mg Tablet PO (08:19)
[2023-05-02] MEDS: heparin 5,000 unit/mL INJ 1 mL 5000 UNIT SUBCUT ×2 (08:19→20:13)
--- NOTE | 2023-05-02 10:43 | P.TS_ITS ---
Transfer Summary Providers Date of Admission: 04/30/23 19:20 Date of Discharge/Transfer: 05/02/23 Attending Provider at Admission: Brendan David Attending Provider at Transfer: Anshu Hernández MD Primary Care Provider: Danny Cantu Transfer Plans: Anticipated date of transfer: 05/02/23 . Diagnoses at Discharge Discharge Diagnosis (1) Elevated liver enzymes: Status: Acute (2) Diarrhea: Status: Acute (3) Right upper quadrant pain: Status: Acute (4) GERD (gastroesophageal reflux disease): Status: Acute (5) Anxiety: Status: Acute (6) Tobacco dependence: Status: Acute Reason for Visit Reason for Visit stomach and back pain Hospital Course Hospital Course 47-year-old female who presented to the hospital with chief complaint abdominal pain across right upper quadrant and epigastric area, in the ER AST 1131 ALT 944 alk phos 205 T bilirubin normal lipase 69, she was afebrile without any signs of jaundice, drug screen negative, patient drinks alcohol, last alcoholic drink was 3 3 days prior to her admission in the hospital she drank 6 beers, MRCP showed cholelithiasis 1.7 cm stone without significant CBD dilation, however abdominal ultrasound was showing CBD dilation up to 8 mm with concern for cholecystitis, patient remained afebrile, she did not show any signs of worsening, no significant leukocytosis, Erazo sign was negative decision was made to pursue HIDA scan After reviewing HIDA scan report and discussing with the radiologist we did update patient, family, they were agreeable for the transfer, there was a long waiting list at [facility] we tried [facility], Dr. Currie has accepted the patient for immediate ERCP on 05/02 patient will be made n.p.o. before her transfer She is n.p.o., afebrile Blood pressure 106/71 mmHg, pulse 77, respiratory 16, 98.4 temperature saturating well on room air, she tolerated her breakfast Liver enzymes are trending down ALT 438, AST 130 T. bili 0.4 normal kidney function with creatinine 0.9 HIDA scan IMPRESSION: 1.? Gallbladder is not visualized by 2 hours compatible with cystic duct obstruction and acute cholecystitis. 2.? Suspected tiny incompletely obstructing or nonobstructing gallstones in the distal common bile duct on the prior MRCP only visualized on the coronal and MIP imaging. Recommend ERCP. 3.? 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 Patient at risk for cholecystoduodenal fistula due to large gallstone size and proximity to the traversing duodenum if ongoing inflammation from cholecystitis. MRCP FINDINGS: Liver: No mass. Gallbladder and bile ducts: Cholelithiasis. There is a 1.7 cm stone within the gallbladder neck. No apparent gallbladder wall thickening. No irregular enhancement of the gallbladder wall. No common bile duct dilation or filling defect within the common bile duct. Pancreas: Unremarkable. No ductal dilation. Spleen: Unremarkable. No splenomegaly. Adrenal glands: Unremarkable. No mass. Kidneys and ureters: Unremarkable. No solid mass. No hydronephrosis. Stomach and bowel: Visualized stomach and intestines are unremarkable. Intraperitoneal space: No free fluid. Vasculature: No abdominal aortic aneurysm. Bones/joints: Unremarkable.? Soft tissues: Unremarkable. MR/MR MRCP [id number] IMPRESSION: Cholelithiasis. No common bile duct dilation/choledocholithiasis. Abdominal ultrasound IMPRESSION: 1. ? Cholelithiasis and mild gallbladder wall thickening.? Acute cholecystitis cannot be excluded. If clinically indicated, HIDA scan would provide a more sensitive evaluation for acute gallbladder pathology. 2. ? Common bile duct dilatation to approximately 8 mm. Correlate with LFTs and, if clinically indicated, ERCP or MRCP. Doppler ultrasound No sign of portal venous thrombosis, IVC duplex Findings ?NORMAL IVC AND HEPATIC VEINS? NORMAL PORTAL FLOW TOWARDS THE ?LIVER.? INCIDENTAL GB VEIWS OF GB LOOK MUCH WORSE ?Conclusions ?Normal IVC. Hepatic veins are patent. Normal hepatopetal flow. ?Limited gallbladder views. ?Cholelithiasis with shadowing. Gallbladder is contracted with ?wall thickening. Correlation for cholecystitis Physical Exam Narrative: Erazo sign negative Abdomen soft No active emesis S1, S2 Abdomen soft Currently on room air Pleasant and cooperative TS Data Studies Completed and Pending Pending at discharge Category Date Time Status AMA [Mitochondrial AB Screen] Routine Lab 04/30/23 03:56 Received GIBRAN Screen w/ Reflex Routine Lab 04/30/23 03:56 Received Ammonia AM LABS Lab 05/03/23 04:00 Ordered Complete Blood Count w/Auto AM LABS Lab 05/03/23 04:00 Ordered Comprehensive Metabolic Panel AM LABS Lab 05/03/23 04:00 Ordered Lipase AM LABS Lab 05/03/23 04:00 Ordered Prothrombin Time INR AM LABS Lab 05/03/23 04:00 Ordered Smooth Muscle AB Screen w/Refl Routine Lab 04/30/23 03:56 Received Labs from last 24 hours 05/02/23 05/02/23 05/02/23 03:46 03:46 03:46 WBC RBC Hgb Hct MCV MCH MCHC RDW Plt Count MPV Neut % (Auto) Lymph % (Auto) [place] % (Auto) Eos % (Auto) Baso % (Auto) Neut # (Auto) Lymph # (Auto) [place] # (Auto) Eos # (Auto) Baso # (Auto) Nucleated RBC % (auto) Nucleated RBCs # PT 12.70 INR 0.93 Sodium 138 Potassium 4.8 Chloride 103 Carbon Dioxide 26 Anion Gap 13.8 BUN 18 Creatinine 0.9 GFR Calculation 67.4 L Glucose 96 Calculated Osmolality 288 Calcium 9.2 Total Bilirubin 0.4 AST 130 H ALT 438 H Alkaline Phosphatase 198 H Ammonia 23 Total Protein 6.5 L Albumin 3.9 Globulin 2.6 Lipase 49 05/02/23 03:46 WBC 7.6 RBC 4.36 Hgb 13.4 Hct 41.4 MCV 95.0 MCH 30.7 MCHC 32.4 RDW 12.1 Plt Count 195 MPV 8.9 Neut % (Auto) 56.6 Lymph % (Auto) 36.2 [place] % (Auto) 5.0 Eos % (Auto) 1.5 Baso % (Auto) 0.4 Neut # (Auto) 4.28 Lymph # (Auto) 2.7 [place] # (Auto) 0.4 Eos # (Auto) 0.1 Baso # (Auto) 0.0 Nucleated RBC % (auto) 0 Nucleated RBCs # 0.0 PT INR Sodium Potassium Chloride Carbon Dioxide Anion Gap BUN Creatinine GFR Calculation Glucose Calculated Osmolality Calcium Total Bilirubin AST ALT Alkaline Phosphatase Ammonia Total Protein Albumin Globulin Lipase Completed Studies During Hospitalization Category Date Time Status MR MRCP [id number] Stat MRI 04/30/23 13:18 Completed NM hepatobiliary w phar* [id number] Routine Nuc Med 05/01/23 20:01 [place]C [id number] Routine Ultrasound 05/01/23 20:33 Completed US abdomen limited [id number] Stat Ultrasound 04/30/23 11:54 Completed Laboratory Last Values WBC 7.6 10^3/uL (4.0-10.0) 05/02/23 03:46 RBC 4.36 10^6/uL (4.1-5.3) 05/02/23 03:46 Hgb 13.4 g/dL (11.5-15.3) 05/02/23 03:46 Hct 41.4 % (37.0-47.0) 05/02/23 03:46 MCV 95.0 fl (81-99) 05/02/23 03:46 MCH 30.7 pg (28.0-34.0) 05/02/23 03:46 MCHC 32.4 g/dL (30.0-36.0) 05/02/23 03:46 RDW 12.1 % (12.1-15.1) 05/02/23 03:46 Plt Count 195 10^3/cmm (130-400) 05/02/23 03:46 MPV 8.9 fL (7.4-10.4) 05/02/23 03:46 Neut % (Auto) 56.6 % 05/02/23 03:46 Lymph % (Auto) 36.2 % 05/02/23 03:46 [place] % (Auto) 5.0 % 05/02/23 03:46 Eos % (Auto) 1.5 % 05/02/23 03:46 Baso % (Auto) 0.4 % 05/02/23 03:46 Neut # (Auto) 4.28 10^3/uL (1.8-7.7) 05/02/23 03:46 Lymph # (Auto) 2.7 10^3/uL (0.8-4.8) 05/02/23 03:46 [place] # (Auto) 0.4 10^3/uL (0.2-0.9) 05/02/23 03:46 Eos # (Auto) 0.1 10^3/uL (0.0-0.8) 05/02/23 03:46 Baso # (Auto) 0.0 10^3/uL (0.0-0.1) 05/02/23 03:46 Nucleated RBC % (auto) 0 % 05/02/23 03:46 Nucleated RBCs # 0.0 /100WBC 05/02/23 03:46 PT 12.70 SECONDS (12.1-14.9) 05/02/23 03:46 INR 0.93 (0.8-1.2) 05/02/23 03:46 Sodium 138 mmol/L (136-145) 05/02/23 03:46 Potassium 4.8 mmol/L (3.5-5.1) 05/02/23 03:46 Chloride 103 mmol/L (98-107) 05/02/23 03:46 Carbon Dioxide 26 mmol/L (22-29) 05/02/23 03:46 Anion Gap 13.8 (5-19) 05/02/23 03:46 BUN 18 mg/dL (6-20) 05/02/23 03:46 Creatinine 0.9 mg/dL (0.5-0.9) 05/02/23 03:46 GFR Calculation 67.4 mL/min (90-130) L 05/02/23 03:46 Glucose 96 mg/dL (65-115) 05/02/23 03:46 Calculated Osmolality 288 mOsm/kg (285-295) 05/02/23 03:46 Calcium 9.2 mg/dL (8.5-10.5) 05/02/23 03:46 Total Bilirubin 0.4 mg/dL (0.15-1.2) 05/02/23 03:46 GGT 450 U/L (5-36) H 04/30/23 16:22 AST 130 U/L (0-32) H 05/02/23 03:46 ALT 438 U/L (0-33) H 05/02/23 03:46 Alkaline Phosphatase 198 U/L (35-105) H 05/02/23 03:46 Ammonia 23 umol/L (11-51) 05/02/23 03:46 Total Protein 6.5 g/dL (6.6-8.7) L 05/02/23 03:46 Albumin 3.9 g/dL (3.5-5.2) 05/02/23 03:46 Globulin 2.6 g/dL (1.3-4.6) 05/02/23 03:46 Lipase 49 U/L (13-60) 05/02/23 03:46 Tumor Marker AFP 5.5 ng/mL (0-8.3) 05/01/23 03:56 Urine Color Dark yellow (Yellow) 04/30/23 16:14 Urine Appearance Clear (CLEAR) 04/30/23 16:14 Urine pH 8 (5-7) H 04/30/23 16:14 Ur Specific [place] 1.015 (1.005-1.030) 04/30/23 16:14 Urine Protein Neg (Negative) 04/30/23 16:14 Urine Glucose (UA) Norm (Normal) 04/30/23 16:14 Urine Ketones Negative (Negative) 04/30/23 16:14 Urine Blood Neg (Negative) 04/30/23 16:14 Urine Nitrate Negative (Negative) 04/30/23 16:14 Urine Bilirubin Neg (Negative) 04/30/23 16:14 Urine Urobilinogen 4 mg/dL (Negative) H 04/30/23 16:14 Ur Leukocyte Esterase Negative (Negative) 04/30/23 16:14 Salicylates < 0.3 mg/dL (3-10) L 04/30/23 16:22 Urine Opiates Screen Negative ng/mL (Negative) 04/30/23 16:14 Acetaminophen < 5.0 ug/mL (10-30) L 04/30/23 16:22 Ur Barbiturates Screen Negative ng/mL (Negative) 04/30/23 16:14 Ur Phencyclidine Scrn Negative ng/mL (Negative) 04/30/23 16:14 Ur Amphetamines Screen Negative ng/mL (Negative) 04/30/23 16:14 U Benzodiazepines Scrn Negative ng/mL (Negative) 04/30/23 16:14 Urine Cocaine Screen Negative ng/mL (Negative) 04/30/23 16:14 U Marijuana (THC) Screen Negative ng/mL (Negative) 04/30/23 16:14 Ethyl Alcohol < 10 mg/dL (0-10) 04/30/23 16:22 Hepatitis A IgM Ab Non-reactive (Nonreactive) 04/30/23 11:34 Hep Bs Antigen Non-reactive (Nonreactive) 04/30/23 11:34 Hep Bs Antibody < 3.5 (11.5-1000) L 04/30/23 11:34 Hep B Core Total Ab Non-reactive (Nonreactive) 04/30/23 11:34 Hepatitis C Antibody Non-reactive (Nonreactive) 04/30/23 11:34 Radiology Impressions Abdomen Ultrasound 04/30/23 11:54 IMPRESSION: 1. Cholelithiasis and mild gallbladder wall thickening. Acute cholecystitis cannot be excluded. If clinically indicated, HIDA scan would provide a more sensitive evaluation for acute gallbladder pathology. 2. Common bile duct dilatation to approximately 8 mm. Correlate with LFTs and, if clinically indicated, ERCP or MRCP. Cholangiopancreatography MRI 04/30/23 13:18 IMPRESSION: Cholelithiasis. No common bile duct dilation/choledocholithiasis. Hepatobiliary Scan Nuclear Medicine 05/01/23 20:01 IMPRESSION: 1. Gallbladder is not visualized by 2 hours compatible with cystic duct obstruction and acute cholecystitis. 2. Suspected tiny incompletely obstructing or nonobstructing gallstones in the distal common bile duct on the prior MRCP only visualized on the coronal and MIP imaging. Recommend ERCP. 3. 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 Patient at risk for cholecystoduodenal fistula due to large gallstone size and proximity to the traversing duodenum if ongoing inflammation from cholecystitis. Notified Dr. Hernández at 05/01/2023 2:00 PM. Recent Clincial Data Last Vital Signs Temp 98.4 F 05/02/23 07:48 Pulse 77 05/02/23 07:48 Resp 16 05/02/23 08:56 BP 106/71 05/02/23 07:48 Pulse Ox 94 05/02/23 07:48 O2 Del Method Room Air 05/02/23 03:33 Vital Signs Temp Pulse Resp BP Pulse Ox O2 Del Method 05/02/23 08:56 16 05/02/23 07:48 98.4 F 77 18 106/71 94 05/02/23 06:00 95 05/02/23 03:33 98.2 F 73 18 112/64 96 Room Air 05/01/23 23:08 81 05/01/23 23:52 98.4 F 72 20 H 116/64 92 Room Air Intake & Output/Weight 04/30/23 05/01/23 05/02/23 05/03/23 06:59 06:59 06:59 06:59 Intake Total 480 / 480 600 / 600 240 / 240 Balance 480 / 480 600 / 600 240 / 240 Weight 81.647 kg Vitals Last Vital Signs Temp 98.4 F 06/13/23 07:48 Pulse 77 05/02/23 07:48 Resp 16 05/02/23 08:56 BP 106/71 05/02/23 07:48 Pulse Ox 94 05/02/23 07:48 O2 Del Method Room Air 05/02/23 03:33 TS Medications Medications Heparin Sodium (Porcine) (Heparin 5,000 Unit/Ml Inj 1 Ml) 5,000 unit SUBCUT Q12H [facility] Last Admin: 05/02/23 08:19 Dose: 5,000 unit Hydromorphone HCl (Hydromorphone 4 Mg Tablet) 2 mg PO Q6H PRN PRN Reason: MODERATE TO SEVERE PAIN Last Admin: 05/02/23 08:56 Dose: 2 mg Nicotine (Nicotine 21 Mg Patch) 1 patch TRANSDERMA DAILY [facility] Last Admin: 05/01/23 21:37 Dose: 1 patch Nicotine Polacrilex (Nicotine 4 Mg Lozenge) 4 mg MUCOUS MEM Q2H PRN PRN Reason: NICOTINE CRAVINGS Ondansetron HCl (Ondansetron 2 Mg/Ml Sdv 2 Ml) 4 mg IVP Q8H PRN PRN Reason: vomiting, or N/V if npo Last Admin: 05/01/23 12:11 Dose: 4 mg Pantoprazole Sodium (Pantoprazole Dr 40 Mg Tablet) 40 mg PO DAILY [facility] Last Admin: 05/02/23 08:19 Dose: 40 mg Discontinued Medications Ketorolac Tromethamine (Ketorolac 30 Mg/Ml Inj) 30 mg IVP ONCE ONE Stop: 04/30/23 11:55 Last Admin: 04/30/23 12:03 Dose: 30 mg Ketorolac Tromethamine (Ketorolac 30 Mg/Ml Inj) 30 mg IVP ONCE ONE Stop: 04/30/23 18:46 Last Admin: 04/30/23 18:49 Dose: 30 mg Ketorolac Tromethamine (Ketorolac 30 Mg/Ml Inj) 15 mg IVP ONCE ONE Stop: 05/01/23 11:50 Last Admin: 05/01/23 12:11 Dose: 15 mg Morphine Sulfate (Morphine 4 Mg/Ml Sdv 1 Ml) 4 mg IVP ONCE ONE Stop: 04/30/23 18:34 Last Admin: 04/30/23 18:47 Dose: Not Given Nicotine (Nicotine 21 Mg Patch) 1 patch TRANSDERMA DAILY [facility] Ondansetron HCl (Ondansetron 2 Mg/Ml Sdv 2 Ml) 4 mg IVP ONCE ONE Stop: 04/30/23 11:55 Last Admin: 04/30/23 12:03 Dose: 4 mg Allergies morphine Allergy (Verified 04/30/23 18:35) ADR-Itching Home Medications nicotine 14 mg/24 hr daily transdermal patch 1 patch transdermal DAILY #14 ea 11/30/22 [Rx Confirmed 04/30/23] nicotine 21 mg/24 hr daily transdermal patch 1 patch transdermal DAILY #14 ea 11/30/22 [Rx Confirmed 04/30/23] nicotine 7 mg/24 hr daily transdermal patch 1 patch transdermal Q24H #14 ea 11/30/22 [Rx Confirmed 04/30/23] loperamide 2 mg capsule 2 mg PO Q6H PRN loose stool #30 caps 04/13/23 [Rx Confirmed 04/30/23] omeprazole 40 mg capsule,delayed release 40 mg PO QAM 04/30/23 [History Confirmed 04/30/23] venlafaxine 150 mg capsule,extended release 24 hr 150 mg PO QAM 04/30/23 [History Confirmed 04/30/23] Discharge Plan Discharge Patient Disposition: Xfer Other Condition: Stable Prescriptions: No Action nicotine 7 mg/24 hr patch 24 hour 1 patch transdermal Q24H Qty: 14 0RF Rx Instructions: NOT STARTED OF 04/30/23 nicotine 14 mg/24 hr patch 24 hour 1 patch transdermal DAILY Qty: 14 0RF Rx Instructions: NOT STARTED OF 04/30/23 nicotine 21 mg/24 hr patch 24 hour 1 patch transdermal DAILY Qty: 14 0RF Rx Instructions: NOT STARTED OF 04/30/23 loperamide 2 mg capsule 2 mg PO Q6H PRN (Reason: loose stool) Qty: 30 0RF venlafaxine 150 mg capsule,extended release 24hr 150 mg PO QAM omeprazole 40 mg capsule,delayed release(DR/EC) 40 mg PO QAM Discharge Orders: Discharge Order (Routine); Ordered 05/02/23 Ordered By: Anshu Hernández Referrals: Danny Cantu [employer]ER [Primary Care Provider] - Transfer Attestations Time Spent in Transfer Care: greater than 30 min Quality Metrics Clinical Quality Measures [ No reported AMI, CVA or VTE this stay] Coding Level of Care Code Acute Code for Chg Fwd Diagnoses Elevated liver enzymes R74.8 Diarrhea R19.7 Right upper quadrant pain R10.11 GERD (gastroesophageal reflux disease) K21.9 Anxiety F41.9 Tobacco dependence F17.200
--- NOTE | 2023-05-02 13:12 | PM.PN ---
Subjective Subjective: Will be transferred to [facility] tomorrow Spoke with Dr. Palafox Patient is afebrile He will accept the patient tomorrow morning She she will be kept n.p.o. after midnight Vitals/I&O/Wt Last Vital Signs Temp 98.2 F 05/02/23 11:49 Pulse 77 05/02/23 11:49 Resp 16 05/02/23 08:56 BP 106/71 05/02/23 11:49 Pulse Ox 96 05/02/23 11:49 O2 Del Method Room Air 05/02/23 03:33 05/01/23 05/02/23 05/02/23 22:59 06:59 14:59 Intake Total 600 / 600 240 / 240 Balance 600 / 600 240 / 240 Physical Exam Narrative: Patient is not complain abdominal pain Tolerated breakfast Awake and alert No signs of jaundice Hemodynamic stable GCS 15 Abdomen soft Erazo sign negative Data 05/02/23 03:46 05/02/23 03:46 A&P Assessment and plan (1) Elevated liver enzymes: (2) Diarrhea: (3) Right upper quadrant pain: (4) GERD (gastroesophageal reflux disease): (5) Abnormal mammogram of left breast: (6) Anxiety: (7) Tobacco dependence: (8) Encounter for wellness examination: Plan Plan to discharge her tomorrow spoke with [facility] surgeon who is planning to schedule her ERCP tomorrow morning n.p.o. after midnight, I will give her 1 dose of Zosyn Attestations Medical Necessity Statement*: Discharge tomorrow Diagnoses Elevated liver enzymes R74.8 Diarrhea R19.7 Right upper quadrant pain R10.11 GERD (gastroesophageal reflux disease) K21.9 Abnormal mammogram of left breast R92.8 Anxiety F41.9 Tobacco dependence F17.200 Encounter for wellness examination Z00.00
[2023-05-02] MEDS: piperacillin-tazobactam 3.375 GM in sodium chloride 0.9% (plus) 50 ML IV ×2 (15:22→22:38)
[2023-05-02] MEDS: nicotine 21 mg Patch 1 PATCH TRANSDERMA (21:11)
[2023-05-03 03:38] VITALS: BP 110/66; PULSE 62; RESP 16; TEMP 36.6; O2SAT 94
--- NOTE | 2023-05-03 04:22 | PC.NURSE ---
Pt being transported by EMS to [facility] at this time. [facility] All belongings were with pt at time of transport.
[2023-05-03 04:25] VITALS: BP 110/66; PULSE 62; RESP 16; TEMP 36.6; O2SAT 94
[2023-05-03 10:04] LABS: Anti-Nuclear Antibody Pattern Nuclear, Nucleolar; Anti-Nuclear Antibody Screen POSITIVE (NEGATIVE)
[2023-05-04 12:29] LABS: Smooth Muscle Ab Screen NEGATIVE (NEGATIVE)
== END 2023-05-03 04:22 | disposition short-term general hospital (02) | DRG 446 ==
LOC: ER 18:46 → MEDSURG 19:23
PROVIDERS: Admitting Provider Internal Medicine; Emergency Provider Emergency Medicine; PCP Clinical Nurse Specialist Adult Health; Visit Provider Internal Medicine
DX: K80.20 Calculus of gallbladder without cholecystitis without obstruction (principal); F10.10 Alcohol abuse, uncomplicated; F17.210 Nicotine dependence, cigarettes, uncomplicated; F41.9 Anxiety disorder, unspecified; K21.9 Gastro-esophageal reflux disease without esophagitis
CPT/HCPCS: 36415; 74181; 76705; 78227; 80053; 80306; 80307; 81003; 82105; 82140; 82977; 83516; 83690; 85025; 85610; 86038; 86705; 86706; 86709; 86803; 87340; 93978; 96372; 96374; 96375; 96376; 99285; A9537; J1644; J1885; J2405; J2543

== ENCOUNTER → 2023-08-30 16:31 | Outpatient (BNVA) | payer OTHER, SELFPAY | PROVIDERS: PCP Clinical Nurse Specialist Adult Health; Visit Provider Clinical Nurse Specialist Adult Health | DX: L65.9 Nonscarring hair loss, unspecified (principal); N95.9 Unspecified menopausal and perimenopausal disorder | CPT/HCPCS: 82306 ==

== ENCOUNTER → 2023-08-31 09:30 | Outpatient (BNVA) | payer OTHER, SELFPAY | PROVIDERS: PCP Clinical Nurse Specialist Adult Health; Visit Provider Clinical Nurse Specialist Adult Health | DX: N95.9 Unspecified menopausal and perimenopausal disorder (principal) | CPT/HCPCS: 82306 ==

== ENCOUNTER → 2024-02-06 16:17 | Outpatient (BNVA) | payer OTHER, SELFPAY | PROVIDERS: PCP Clinical Nurse Specialist Adult Health; Visit Provider Clinical Nurse Specialist Adult Health | DX: Z00.00 Encounter for general adult medical examination without abnormal findings (principal) | CPT/HCPCS: 87624 ==

== ENCOUNTER 2024-02-08 06:22 | Outpatient (CLI) | payer OTHER, SELFPAY ==
--- NOTE | 2024-02-08 06:30 | USCV_ITS ---
Nanette Gibson Age: 48 Gender: F : 1975 Exam Date: 02/08/2024 06:28 Ordering Phys: Danny Cantu NP Technologist: RADHA Exam Location: [place] Indication: RLE PAIN AND SWELLING HISTORY: Lower extremity swelling. Lower extremity pain. PROCEDURES: Venous duplex imaging was performed in only the right lower extremity. The following venous structures were evaluated: common femoral vein, profunda vein, proximal portion of the greater saphenous vein, superficial femoral vein, and the popliteal vein. In addition, the posterior tibial and peroneal trunk were evaluated. Serial compression, augmentation maneuvers, and spectral Doppler flow evaluation were performed. FINDINGS: No evidence of DVT seen in any vessel visualized at this time. CONCLUSIONS No evidence of right lower extremity DVT. Popliteal cyst measuring 2.4 x 1.3cm George Milligan MD (Electronically Signed) Final Date: 08 February 2024 08:54 S
== END 2024-02-08 06:23 | disposition home or self-care (01) ==
LOC: RAD 06:22
PROVIDERS: PCP Clinical Nurse Specialist Adult Health; Visit Provider Clinical Nurse Specialist Adult Health
DX: M79.661 Pain in right lower leg (principal); M79.89 Other specified soft tissue disorders; M71.21 Synovial cyst of popliteal space [Baker], right knee
CPT/HCPCS: 93971

== ENCOUNTER 2024-02-21 14:07 | Outpatient (CLI) | payer OTHER, SELFPAY ==
--- NOTE | 2024-02-21 14:30 | USCV_ITS ---
Nanette Gibson Age: 48 Gender: F : 1975 Exam Date: 02/21/2024 14:22 Ordering Phys: Danny Cantu NP Technologist: Exam [place] [facility] Indication: rt calf pain RIGHT LEFT Brachial 118.00 mmHg Brachial 127.00 mmHg Pressure (mmHg) Waveform Pressure (mmHg) Waveform 136.00 COMPANY DOCTOR 134.00 102.00 DPA 119.00 1.07 Ankle/Brachial Index 1.06 FINDINGS Resting STEVEN 1.07 on the right side and 1.06 on the left side CONCLUSIONS Normal resting ABIs bilaterally No significant arterial obstruction, based on the above findings. Dr Jerardo Tay MD [facility] (Electronically Signed) Final Date: 22 February 2024 13:33 S
--- NOTE | 2024-02-21 15:30 | MM_ITS ---
WS: [id number] BILATERAL 3D TOMOSYNTHESIS DIGITAL SCREENING MAMMOGRAPHY WITH CAD CLINICAL INFORMATION: screening HISTORY: Screening mammogram. No current complaints. COMPARISON: 2022 TECHNIQUE: Bilateral CC and MLO views. FINDINGS: Intact bilateral breast implants. The breasts are composed of heterogeneous fibroglandular density tissue, which can limit the detectio n of small underlying mass lesions. Stable nodularity both breasts. No suspicious mass, asymmetry, ca lcifications, or architectural distortion. No evidence of malignancy. IMPRESSION: MM/[place] [id number] BI-RADS: 2-Benign FOLLOW UP: 1 Year Follow-up Recommend return to annual screening mammography.
== END 2024-02-21 14:08 | disposition home or self-care (01) ==
LOC: RAD 14:07
PROVIDERS: PCP Clinical Nurse Specialist Adult Health; Visit Provider Clinical Nurse Specialist Adult Health
DX: Z12.39 Encounter for other screening for malignant neoplasm of breast (principal); Z01.411 Encounter for gynecological examination (general) (routine) with abnormal findings; M79.661 Pain in right lower leg; R92.30 Dense breasts, unspecified
CPT/HCPCS: 77063; 77067; 93922

== ENCOUNTER → 2024-04-04 13:59 | Outpatient (BNVA) | payer OTHER, SELFPAY | PROVIDERS: PCP Clinical Nurse Specialist Adult Health; Visit Provider Physician Assistant | DX: M71.21 Synovial cyst of popliteal space [Baker], right knee; M79.661 Pain in right lower leg | CPT/HCPCS: 73560; 73565 ==

== ENCOUNTER 2025-08-20 14:06 | Outpatient (CLI) | payer OTHER, SELFPAY ==
--- NOTE | 2025-08-20 14:13 | MM_ITS ---
WS: [id number] BILATERAL 3D TOMOSYNTHESIS DIGITAL SCREENING MAMMOGRAPHY WITH CAD CLINICAL INFORMATION: SCREENING HISTORY: Screening mammogram. No current complaints. COMPARISON: 2023 TECHNIQUE: Bilateral CC and MLO views. FINDINGS: The breasts are composed of heterogeneous fibroglandular density tissue, which can limit the detection of small underlying mass lesions. No suspicious mass, asymmetry, calcifications, or architectural distortion. No evidence of malignancy. Stable nodular breast tissue anterior LEFT breast. Vascular salma cification. MM/MM scr tomosynthesis [id number] IMPRESSION: DENSITY: The breasts are heterogeneously dense, which may obscure small masses. BI-RADS: 2 - Benign FOLLOW UP: 1 Year Follow-up Recommend return to annual screening mammography.
== END 2025-08-20 14:07 | disposition home or self-care (01) ==
LOC: RAD 14:10
PROVIDERS: PCP Nurse Practitioner Family; Visit Provider Nurse Practitioner Family
DX: Z12.31 Encounter for screening mammogram for malignant neoplasm of breast (principal); R92.333 Mammographic heterogeneous density, bilateral breasts; R92.323 Mammographic fibroglandular density, bilateral breasts; N63.20 Unspecified lump in the left breast, unspecified quadrant; R92.1 Mammographic calcification found on diagnostic imaging of breast
CPT/HCPCS: 77063; 77067

== ENCOUNTER → 2025-09-26 10:01 | Outpatient (BNVA) | payer OTHER, SELFPAY | PROVIDERS: PCP Nurse Practitioner Family; Visit Provider Physician Assistant | DX: M70.71 Other bursitis of hip, right hip (principal); M70.72 Other bursitis of hip, left hip | CPT/HCPCS: 73523 ==

== ENCOUNTER 2025-10-20 05:00 | Outpatient (RCR) | payer OTHER, SELFPAY | END 2025-11-19 23:59 | disposition home or self-care (01) | LOC: SPT 05:00 | PROVIDERS: Visit Provider Physician Assistant | DX: M70.71 Other bursitis of hip, right hip (principal); M70.72 Other bursitis of hip, left hip | CPT/HCPCS: 97161 ==